=== PATIENT | female | born 1980 | race Caucasian/White ===

== ENCOUNTER 2019-06-28 11:40 | Emergency (ER) | payer SELFPAY ==
[2019-06-28] MEDS ORDERED: NA CHLORIDE 0.9% 1,000 ML ONE (12:16)
--- NOTE | 2019-06-28 12:43 | RAD REPORT ---
EXAM DESCRIPTION: RAD - Chest Pa And Lat (2 Views) - 06/28/2019 12:34 pm CLINICAL HISTORY: COUGH Chest pain. COMPARISON: No comparisons FINDINGS: The lungs are clear. The heart is normal in size. No displaced fractures. IMPRESSION: No acute or concerning finding suspected.
[2019-06-28 13:03] LABS: Urine Blood NEGATIVE (NEG); Urine Glucose NEGATIVE (NEG); Urine Protein NEGATIVE (NEG); Urine Specific Gravity 1.025 (1.005-1.030); Urine pH 5.5 (5.0-7.0)
--- NOTE | 2019-06-28 13:23 | EDPHYS ---
Physician Documentation [facility] Name: Dejon Parker Age: 38 yrs Sex: Female : 1980 Arrival Date: 06/28/2019 Time: 11:43 Bed 19 Private MD: ED Physician Carlos Cox HPI: 06/28 12:48 This 38 yrs old Female presents to ER via Ambulatory with complaints of Flu pm1 Symptoms. 12:48 Onset: The symptoms/episode began/occurred yesterday. Associated signs and symptoms: pm1 Pertinent positives: cough, sore throat, subjective fever, Pertinent negatives: chest pain, dysuria, earache, shortness of breath. Modifying factors: The patient symptoms are alleviated by nothing, the patient symptoms are aggravated by nothing. The patient has experienced similar episodes in the past, multiple times. The patient has not recently seen a physician. 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 - Social history:: Smoking status: Patient/guardian denies using tobacco. - Ebola Screening: : No symptoms or risks identified at this time. ROS: 12:48 Eyes: Negative for injury, pain, redness, and discharge. pm1 12:48 Neck: Negative for injury, pain, and swelling, Cardiovascular: Negative for chest pain, palpitations, and edema. 12:48 Abdomen/GI: Negative for abdominal pain, nausea, vomiting, diarrhea, and constipation, Back: Negative for injury and pain, : Negative for injury, bleeding, discharge, and swelling, MS/Extremity: Negative for injury and deformity, Skin: Negative for injury, rash, and discoloration, Neuro: Negative for headache, weakness, numbness, tingling, and seizure. 12:48 Constitutional: Positive for body aches, chills, fever, poor PO intake. 12:48 ENT: Positive for sore throat, Negative for drainage from ear(s), ear pain. 12:48 Respiratory: Positive for cough, Negative for shortness of breath, sputum production, wheezing. Exam: 12:48 Constitutional: This is a well developed, well nourished patient who is awake, alert, pm1 and in no acute distress. Head/Face: Normocephalic, atraumatic. Eyes: Pupils equal round and reactive to light, extra-ocular motions intact. Lids and lashes normal. Conjunctiva and sclera are non-icteric and not injected. Cornea within normal limits. Periorbital areas with no swelling, redness, or edema. ENT: Nares patent. No nasal discharge, no septal abnormalities noted. Tympanic membranes are normal and external auditory canals are clear. Oropharynx with no redness, swelling, or masses, exudates, or evidence of obstruction, uvula midline. Mucous membranes moist. Neck: Trachea midline, no thyromegaly or masses palpated, and no cervical lymphadenopathy. Supple, full range of motion without nuchal rigidity, or vertebral point tenderness. No Meningismus. Chest/axilla: Normal chest wall appearance and motion. Nontender with no deformity. No lesions are appreciated. Cardiovascular: Regular rate and rhythm with a normal S1 and S2. No gallops, murmurs, or rubs. Normal PMI, no JVD. No pulse deficits. Respiratory: Lungs have equal breath sounds bilaterally, clear to auscultation and percussion. No rales, rhonchi or wheezes noted. No increased work of breathing, no retractions or nasal flaring. Abdomen/GI: Soft, non-tender, with normal bowel sounds. No distension or tympany. No guarding or rebound. No evidence of tenderness throughout. Back: No spinal tenderness. No costovertebral tenderness. Full range of motion. Skin: Warm, dry with normal turgor. Normal color with no rashes, no lesions, and no evidence of cellulitis. MS/ Extremity: Pulses equal, no cyanosis. Neurovascular intact. Full, normal range of motion. 12:48 Neuro: Orientation: is normal, Motor: is normal, moves all fours. Vital Signs: 11:52 BP 111 / 71; Pulse 107; Resp 20; Temp 99(TE); Pulse Ox 98% on R/A; Weight 58.97 kg; hb Height 4 ft. 11 in. (149.86 cm); Pain 7/10; 13:58 BP 113 / 69; Pulse 99; Resp 19 S; Pulse Ox 98% on R/A; jl7 11:52 Body Mass Index 26.26 (58.97 kg, 149.86 cm) hb MDM: 11:54 Patient medically screened. pm1 13:22 Data reviewed: vital signs. Data interpreted: Pulse oximetry: on room air is 98 %. pm1 Interpretation: normal. Counseling: I had a detailed discussion with the patient and/or guardian regarding: the historical points, exam findings, and any diagnostic results supporting the discharge/admit diagnosis, lab results, radiology results, the need for outpatient follow up, to return to the emergency department if symptoms worsen or persist or if there are any questions or concerns that arise at home. 13:51 ED course: Patient does not understand that antibiotics do not help cure influenza and pm1 is insistent on a prescription for azithromycin. She gets antibiotics around this time every year in [place] and would like it today also. 06/28 12:04 Order name: Flu; Complete Time: 13:22 pm1 06/28 12:04 Order name: Strep; Complete Time: 13:01 pm1 06/28 12:09 Order name: Chest Pa And Lat (2 Views) XRAY; Complete Time: 12:46 pm1 06/28 12:33 Order name: Urine Dipstick--Ancillary (enter results); Complete Time: 13:22 bd 06/28 12:33 Order name: Urine --Ancillary (enter results); Complete Time: 13:22 bd 06/28 13:01 Order name: Throat Culture EDUT 06/28 12:09 Order name: Urine Dipstick-Ancillary (obtain specimen); Complete Time: 12:33 pm1 06/28 12:09 Order name: Urine Test (obtain specimen); Complete Time: 12:33 pm1 Administered Medications: 12:40 Drug: NS 0.9% 1000 ml Route: IV; Rate: 1000 ml; Site: right antecubital; jl7 13:58 Follow up: Response: No adverse reaction; IV Status: Completed infusion; IV Intake: jl7 1000ml Disposition: 06/29 06:52 Co-signature as Attending Physician, Carlos Cox MD I agree with the assessment and hernandez plan of care. Disposition: 06/28/19 13:23 Discharged to Home. Impression: Influenza due to identified novel influenza A virus. - Condition is Stable. - Discharge Instructions: Influenza, Adult. - Prescriptions for Tamiflu 75 mg Oral Capsule - take 1 tablet by ORAL route every 12 hours for 5 days; 10 tablet. Guaifenesin AC 10- 100 mg/5 mL Oral Liquid - take 10 milliliter by ORAL route every 4 hours As needed; 240 milliliter. Zithromax Z- Maco 250 mg Oral Tablet - take 1 tablet by ORAL route as directed for 5 days Day 1 - take two (2) tablets one time. Day 2, 3, 4 , 5 take one (1) tablet once daily.; 6 tablet. - Medication Reconciliation Form, Thank You Letter, Antibiotic Education, Prescription Opioid Use form. - Follow up: Emergency Department; When: As needed; Reason: Worsening of condition. Follow up: Private Physician; When: 2 - 3 days; Reason: Recheck today's complaints, Continuance of care, Re-evaluation by your physician. - Problem is new. - Symptoms have improved. Signatures: Dispatcher [employer] EDMS Carlos Cox MD MD cha Marinas, Patrick, GAS PLANT WORKER GAS PLANT WORKER pm1 Lisbeth Terrazas RN RN Gemma Nolan RN RN jl7 Corrections: (The following items were deleted from the chart) 06/28 14:02 13:23 06/28/2019 13:23 Discharged to Home. Impression: Influenza due to identified jl7 novel influenza A virus. Condition is Stable. Forms are Medication Reconciliation Form, Thank You Letter, Antibiotic Education, Prescription Opioid Use. Follow up: Emergency Department; When: As needed; Reason: Worsening of condition. Follow up: Private Physician; When: 2 - 3 days; Reason: Recheck today's complaints, Continuance of care, Re-evaluation by your physician. Problem is new. Symptoms have improved. pm1
--- NOTE | 2019-06-28 13:23 | ER ---
Nurse's Notes [facility] Name: Dejon Parker Age: 38 yrs Sex: Female : 1980 Arrival Date: 06/28/2019 Time: 11:43 Bed 19 Private MD: Diagnosis: Influenza due to identified novel influenza A virus Presentation: 06/28 11:51 Presenting complaint: Sore throat sinus congestion and drainage, headache, nausea, and hb subjective fever x 3 days. Transition of care: patient was not received from another setting of care. Onset of symptoms was June 26, 2019. Risk Assessment: Do you want to hurt yourself or someone else? Patient reports no desire to harm self or others. Initial Sepsis Screen: Does the patient meet any 2 criteria? No. Patient's initial sepsis screen is negative. Does the patient have a suspected source of infection? No. Patient's initial sepsis screen is negative. Care prior to arrival: None. 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 - Social history:: Smoking status: Patient/guardian denies using tobacco. - Ebola Screening: : No symptoms or risks identified at this time. Screenin:00 Abuse screen: Denies threats or abuse. Denies injuries from another. Nutritional jl7 screening: No deficits noted. Tuberculosis screening: No symptoms or risk factors identified. Fall Risk IV access (20 points). Total [place] Fall Scale indicates No Risk (0-24 pts). Assessment: 12:00 General: Appears in no apparent distress. uncomfortable, Behavior is cooperative, jl7 anxious. Pain: Complains of pain in sore throat Pain currently is 7 out of 10 on a pain scale. Neuro: Level of Consciousness is awake, alert, obeys commands. Cardiovascular: Patient's skin is warm and dry. Respiratory: Reports cough that is productive, persistent Airway is patent Respiratory effort is even, unlabored, Respiratory pattern is regular, symmetrical, Breath sounds are clear bilaterally. EENT: Nares are clear Oral mucosa is moist. Throat is reddened bilaterally. Derm: Skin is pink, warm \T\ dry. 13:00 Reassessment: Patient appears in no apparent distress at this time. No changes from jl7 previously documented assessment. Patient and/or family updated on plan of care and expected duration. Pain level reassessed. Patient is alert, oriented x 3, equal unlabored respirations, skin warm/dry/pink. 13:30 Reassessment: Pt will be discharged once fluids are done infusing. jl7 Vital Signs: 11:52 BP 111 / 71; Pulse 107; Resp 20; Temp 99(TE); Pulse Ox 98% on R/A; Weight 58.97 kg; hb Height 4 ft. 11 in. (149.86 cm); Pain 7/10; 13:58 BP 113 / 69; Pulse 99; Resp 19 S; Pulse Ox 98% on R/A; jl7 11:52 Body Mass Index 26.26 (58.97 kg, 149.86 cm) hb ED Course: 11:43 Patient arrived in ED. rg4 11:52 Triage completed. hb 11:52 Arm band placed on. hb 11:54 Luis Felipe Guerrero NP is PHCP. pm1 11:54 Carlos Cox MD is Attending Physician. pm1 11:58 Gemma Nolan RN is Primary Nurse. jl7 12:33 Urine collected: clean catch specimen, clear, terrie colored. Inserted saline lock: 22 jb1 gauge in right antecubital area, using aseptic technique. 12:35 Chest Pa And Lat (2 Views) XRAY In Process Unspecified. EDMS 13:00 Patient has correct armband on for positive identification. Placed in gown. Bed in low jl7 position. Call light in reach. Side rails up X 1. Pulse ox on. NIBP on. 14:00 No provider procedures requiring assistance completed. IV discontinued, intact, jl7 bleeding controlled, No redness/swelling at site. Pressure dressing applied. Administered Medications: 12:40 Drug: NS 0.9% 1000 ml Route: IV; Rate: 1000 ml; Site: right antecubital; jl7 13:58 Follow up: Response: No adverse reaction; IV Status: Completed infusion; IV Intake: jl7 1000ml Intake: 13:58 IV: 1000ml; Total: 1000ml. jl7 Outcome: 13:23 Discharge ordered by . pm1 14:00 Discharged to home ambulatory. jl7 14:00 Condition: stable 14:00 Discharge instructions given to patient, Instructed on discharge instructions, follow up and referral plans. medication usage, Demonstrated understanding of instructions, follow-up care, medications, Prescriptions given X 3. 14:02 Patient left the ED. jl7 Signatures: Dispatcher [employer] EDMS Emanuel Best jb1 Luis Felipe Guerrero, DAJUAN SHIRRING MACHINE OPERATOR AUTOMATIC pm1 Lisbeth Terrazas, RN RN Nan Paez rg4 Gemma Nolan RN RN jl7
[2019-06-28 20:00] VITALS: TEMP 99; O2SAT 98
[2019-06-28 20:05] VITALS: BP 113/69
== END 2019-06-28 14:02 | disposition home or self-care (01) ==
LOC: ER 11:40
DX: J10.1 Influenza due to other identified influenza virus with other respiratory manifestations (principal)
CPT/HCPCS: 71046; 81003; 81025; 87070; 87081; 87804; 96360; 99284; J7030